=== PATIENT | female | born 1980 | race American Indian/Alaskan Native ===

== ENCOUNTER 2018-01-29 07:35 | Emergency (ER) | payer SELFPAY ==
[2018-01-29 07:57] VITALS: BP 139/77
--- NOTE | 2018-01-29 09:42 | Emergency Department Report ---
ED Animal Bite HPI - General Chief Complaint: Animal Bite Stated Complaint: DOG BITE (L) HAND Source: patient Mode of arrival: Ambulatory Limitations: No Limitations - History of Present Illness Initial Comments: This is a 37-year-old -[place] female who presents with laceration to left from dog bite as morning. Patient states she tried to wrap her doll and personal backyard to avoid her dog from attack in neighbors involved. Patient states her dog accidentally bit left wrist. When she pulled her dog off her hand she noticed a laceration with a large amount of bleeding to wrist and thumb. Patient states she cleaned wound with water and came directly here for evaluation. Patient reports her dog is up-to-date on vaccines and she received a tetanus vaccination in 2015. Patient's states she has full range of motion to thumb. She denies numbness or tingling, swelling, purulent drainage, and fever. MD Complaint: animal bite -: This morning Left: Hand (left thumb) Animal: dog Animal Control Notified: No Description: household pet, immunizations UTD Mechanism: bite Pain Description: intermittent, other (aching) Severity scale (0 -10): 4 Context: animals fighting Associated Symptoms: discharge from wound, bleeding. denies: fever, chills, rash, loss of consciousness, cough, headache, diaphoresis, shortness of breath Treatments Prior to Arrival: irrigation - Related Data Home Medications Medication Instructions Recorded Confirmed Last Taken Vit 90/Iron Fum/Folic 1 each PO QDAY 02/11/13 02/11/13 Unknown [ Formula] Previous Rx's Medication Instructions Recorded Last Taken Type Docusate Sodium [Colace CAP] 100 mg PO BID #60 capsule 02/12/13 Unknown Rx Ferrous Sulfate [Feosol 325 MG tab] 325 mg PO QDAY #30 tablet 02/12/13 Unknown Rx Ibuprofen [Motrin 600 MG tab] 600 mg PO Q6HR #30 tablet 02/12/13 Unknown Rx HYDROcodone/APAP 5-325 [[place] 1 each PO Q6HR PRN #10 tablet 06/05/13 Unknown Rx 5-325 mg TAB] Ibuprofen [Motrin] 800 mg PO TID PRN #20 tablet 06/05/13 Unknown Rx Amoxicillin/Potassium Clav 1 each PO TID #21 tablet 01/29/18 Unknown Rx [Augmentin 500-125 Tablet] Allergies Allergy/AdvReac Type Severity Reaction Status Date / Time No Known Allergies Allergy Unverified 01/11/13 12:12 ED Review of Systems ROS: Stated complaint: DOG BITE (L) HAND Other details as noted in HPI Constitutional: denies: chills, fever Respiratory: denies: cough, shortness of breath, wheezing Cardiovascular: denies: chest pain, palpitations Gastrointestinal: denies: abdominal pain, nausea, diarrhea Skin: lesions (laceration to left wrist). denies: rash Neurological: denies: headache, weakness, paresthesias Psychiatric: denies: anxiety, depression ED Past Medical Hx - Past Medical History Hx Hypertension: No Hx Congestive Heart Failure: No Hx Diabetes: No Hx Deep Vein Thrombosis: No Hx Renal Disease: No Hx Sickle Cell Disease: No Hx Seizures: No Hx Asthma: No Hx COPD: No - Surgical History Past Surgical History?: No - Social History Smoking Status: Current Every Day Smoker Substance Use Type: None - Medications Home Medications: Home Medications Medication Instructions Recorded Confirmed Last Taken Type Vit 90/Iron Fum/Folic 1 each PO QDAY 02/11/13 02/11/13 Unknown History [ Formula] Docusate Sodium [Colace CAP] 100 mg PO BID #60 capsule 02/12/13 Unknown Rx Ferrous Sulfate [Feosol 325 MG tab] 325 mg PO QDAY #30 tablet 02/12/13 Unknown Rx Ibuprofen [Motrin 600 MG tab] 600 mg PO Q6HR #30 tablet 02/12/13 Unknown Rx HYDROcodone/APAP 5-325 [[place] 1 each PO Q6HR PRN #10 tablet 06/05/13 Unknown Rx 5-325 mg TAB] Ibuprofen [Motrin] 800 mg PO TID PRN #20 tablet 06/05/13 Unknown Rx Amoxicillin/Potassium Clav 1 each PO TID #21 tablet 01/29/18 Unknown Rx [Augmentin 500-125 Tablet] ED Physical Exam - General Limitations: No Limitations General appearance: alert, in no apparent distress - Respiratory Respiratory exam: Present: normal lung sounds bilaterally. Absent: respiratory distress - Cardiovascular Cardiovascular Exam: Present: regular rate, normal rhythm. Absent: systolic murmur, diastolic murmur, rubs, gallop - GI/Abdominal GI/Abdominal exam: Present: soft, normal bowel sounds. Absent: organomegaly, mass - Neurological Exam Neurological exam: Present: alert, oriented X3 - Psychiatric Psychiatric exam: Present: normal affect, normal mood - Skin Skin exam: Present: warm, dry, normal color, other (2 cm laceration to 1st left medial metacarpal, and to muscle, serous discharge, no tendon or vessel exposed , no surrounding cellulitis). Absent: intact, rash ED Course Vital Signs 01/29/18 07:54 Temperature 98.6 F Pulse Rate 93 H Respiratory 16 Rate Blood Pressure 139/77 O2 Sat by Pulse 100 Oximetry Critical care attestation.: If time is entered above; I have spent that time in minutes in the direct care of this critically ill patient, excluding procedure time. ED Disposition Clinical Impression: Dog bite of left wrist Qualifiers: Encounter type: initial encounter Qualified Code(s): S61.552A - Open bite of left wrist, initial encounter Laceration of wrist without complication Qualifiers: Encounter type: initial encounter Laterality: left Qualified Code(s): S61.512A - Laceration without foreign body of left wrist, initial encounter Disposition: TO HOME OR SELFCARE Is pt being admited?: No Does the pt Need Aspirin: No Condition: Stable Instructions: Animal Bite (ED), Finger Laceration (ED) Additional Instructions: Take antibiotics as prescribed for the full course. Keep wound dry and clean for 48 hours. Avoid putting to much tension on wound site. Prop arm up on pillows to decrease swelling. Follow up with Primary Care Provider in 2-3 days for reevaluation of wound healing. Return to ER if red, swollen, foul discharge, or fever. Prescriptions: Amoxicillin/Potassium Clav [Augmentin 500-125 Tablet] 1 each PO TID #21 tablet Referrals: ADELINA MARINA MD [Staff Physician] - 3-5 Days [facility] [place] [Outside] - 3-5 Days [facility] [Outside] - 3-5 Days Forms: Work/School Release Form(ED) Time of Disposition: 10:25 Print Language: UPPER SORBIAN ED Medical Decision Making - Radiology Data Radiology results: report reviewed, image reviewed LEFT HAND, 2 views: History: Laceration, dogbite. The bony architecture is intact. Bony alignment is normal. No soft tissue abnormalities are seen. The joint spaces appear preserved. IMPRESSION: Normal left hand. - Medical Decision Making Patient is stable and examined by me. Patient is nontoxic appearing and in no acute signs of distress noted. X-rays of left wrist obtained and dictated by radiologist. I reviewed the report with no acute findings. Laceration to left wrist form dog bite. Wound irrigated with normal saline and sterile dressing applied. Start augment for prophylactic treatment. Patient informed of x-ray results and ER plan. Patient discharged home in stable condition. Discharged home and follow up with PCP in 3 days for reevaluation of wound.
--- NOTE | 2018-01-29 09:55 | XRay Report ---
LEFT HAND, 2 views: History: Laceration, dogbite. The bony architecture is intact. Bony alignment is normal. No soft tissue abnormalities are seen. The joint spaces appear preserved. IMPRESSION: Normal left hand.
== END 2018-01-29 10:38 | disposition home or self-care (01) ==
LOC: ED 07:35
DX: S61.552A Open bite of left wrist, initial encounter (principal); F17.200 Nicotine dependence, unspecified, uncomplicated; W54.0XXA Bitten by dog, initial encounter; Y93.89 Activity, other specified; Y92.89 Other specified places as the place of occurrence of the external cause; Y99.8 Other external cause status
CPT/HCPCS: 99283

== ENCOUNTER 2021-01-19 10:10 | Emergency (ER) | payer SELFPAY ==
[2021-01-19 10:18] VITALS: BP 145/85
--- NOTE | 2021-01-19 12:28 | Emergency Department Report ---
- General Chief Complaint: Chest Pain Stated Complaint: CHEST PAIN, VOMITING, SWEATS Time Seen by Provider: 01/19/21 12:23 Source: patient Mode of arrival: Ambulatory Limitations: No Limitations - History of Present Illness Initial Comments: Patient is a 40-year-old female presents emergency room complaints of URI symptoms that began yesterday. She has associated headache, sinus pressure, nausea, vomiting, diarrhea, chills, subjective fever, generalized body aches, generalized weakness, fatigue, cough. She denies any shortness of breath, abdominal pain, urinary symptoms, leg swelling. She has not been vaccinated for COVID-19. She has not been tested for COVID-19 since becoming sick. No past medical history. No allergies to medications. She states her last menstrual cycle was yesterday. - Related Data Home Medications Medication Instructions Recorded Confirmed Last Taken Vit 90/Iron Fum/Folic 1 each PO QDAY 02/11/13 02/11/13 Unknown [ Formula] Previous Rx's Medication Instructions Recorded Last Taken Type Docusate Sodium [Colace CAP] 100 mg PO BID #60 capsule 02/12/13 Unknown Rx Ferrous Sulfate [Feosol 325 MG tab] 325 mg PO QDAY #30 tablet 02/12/13 Unknown Rx Ibuprofen [Motrin 600 MG tab] 600 mg PO Q6HR #30 tablet 02/12/13 Unknown Rx HYDROcodone/APAP 5-325 [[place] 1 each PO Q6HR PRN #10 tablet 06/05/13 Unknown Rx 5-325 mg TAB] Ibuprofen [Motrin] 800 mg PO TID PRN #20 tablet 06/05/13 Unknown Rx Amoxicillin/Potassium Clav 1 each PO TID #21 tablet 01/29/18 Unknown Rx [Augmentin 500-125 Tablet] Benzonatate [Tessalon Perles] 100 mg PO Q8HR PRN #12 capsule 01/19/21 Unknown Rx Ondansetron [Zofran Odt] 4 mg PO Q8HR PRN #10 tab.rapdis 01/19/21 Unknown Rx guaiFENesin ER [Mucinex ER] 600 mg PO Q12H #14 tablet.er 01/19/21 Unknown Rx Allergies Allergy/AdvReac Type Severity Reaction Status Date / Time No Known Allergies Allergy Verified 01/19/21 10:18 ED Review of Systems ROS: Stated complaint: CHEST PAIN, VOMITING, SWEATS Other details as noted in HPI Comment: All other systems reviewed and negative ED Past Medical Hx - Past Medical History Hx Hypertension: No Hx Congestive Heart Failure: No Hx Diabetes: No Hx Deep Vein Thrombosis: No Hx Renal Disease: No Hx Sickle Cell Disease: No Hx Seizures: No Hx Asthma: No Hx COPD: No - Social History Smoking Status: Current Every Day Smoker Substance Use Type: None - Medications Home Medications: Home Medications Medication Instructions Recorded Confirmed Last Taken Type Vit 90/Iron Fum/Folic 1 each PO QDAY 02/11/13 02/11/13 Unknown History [ Formula] Docusate Sodium [Colace CAP] 100 mg PO BID #60 capsule 02/12/13 Unknown Rx Ferrous Sulfate [Feosol 325 MG tab] 325 mg PO QDAY #30 tablet 02/12/13 Unknown Rx Ibuprofen [Motrin 600 MG tab] 600 mg PO Q6HR #30 tablet 02/12/13 Unknown Rx HYDROcodone/APAP 5-325 [[place] 1 each PO Q6HR PRN #10 tablet 06/05/13 Unknown Rx 5-325 mg TAB] Ibuprofen [Motrin] 800 mg PO TID PRN #20 tablet 06/05/13 Unknown Rx Amoxicillin/Potassium Clav 1 each PO TID #21 tablet 01/29/18 Unknown Rx [Augmentin 500-125 Tablet] Benzonatate [Tessalon Perles] 100 mg PO Q8HR PRN #12 capsule 01/19/21 Unknown Rx Ondansetron [Zofran Odt] 4 mg PO Q8HR PRN #10 tab.rapdis 01/19/21 Unknown Rx guaiFENesin ER [Mucinex ER] 600 mg PO Q12H #14 tablet.er 01/19/21 Unknown Rx ED Physical Exam - General Limitations: No Limitations General appearance: alert, in no apparent distress - Head Head exam: Present: atraumatic, normocephalic - Eye Eye exam: Present: normal appearance - ENT ENT exam: Present: mucous membranes moist - Respiratory Respiratory exam: Present: normal lung sounds bilaterally. Absent: respiratory distress, wheezes, rales, rhonchi, stridor, chest wall tenderness, accessory muscle use, decreased breath sounds, prolonged expiratory - Cardiovascular Cardiovascular Exam: Present: regular rate, normal rhythm, normal heart sounds. Absent: systolic murmur, diastolic murmur, rubs, gallop - Neurological Exam Neurological exam: Present: alert, oriented X3 - Psychiatric Psychiatric exam: Present: normal affect, normal mood - Skin Skin exam: Present: warm, dry, intact ED Course Vital Signs 01/19/21 10:16 Temperature 97.8 F Pulse Rate 71 Respiratory 18 Rate Blood Pressure 145/85 [Right] O2 Sat by Pulse 100 Oximetry ED Medical Decision Making - Lab Data Result diagrams: 01/19/21 13:12 01/19/21 13:12 Lab Results 01/19/21 01/19/21 Range/Units 13:12 13:12 WBC 6.5 (4.5-11.0) K/mm3 RBC 4.23 (3.65-5.03) M/mm3 Hgb 15.7 H (10.1-14.3) gm/dl Hct 45.0 H (30.3-42.9) % MCV 106 H (79-97) fl MCH 37 H (28-32) pg MCHC 35 H (30-34) % RDW 12.1 L (13.2-15.2) % Plt Count 238 (140-440) K/mm3 Lymph % (Auto) 19.7 (13.4-35.0) % [place] % (Auto) 6.8 (0.0-7.3) % Eos % (Auto) 1.1 (0.0-4.3) % Baso % (Auto) 0.9 (0.0-1.8) % Lymph # (Auto) 1.3 (1.2-5.4) K/mm3 [place] # (Auto) 0.4 (0.0-0.8) K/mm3 Eos # (Auto) 0.1 (0.0-0.4) K/mm3 Baso # (Auto) 0.1 (0.0-0.1) K/mm3 Seg Neutrophils % 71.5 H (40.0-70.0) % Seg Neutrophils # 4.7 (1.8-7.7) K/mm3 Sodium 138 (137-145) mmol/L Potassium 3.8 (3.6-5.0) mmol/L Chloride 104.3 (98-107) mmol/L Carbon Dioxide 25 (22-30) mmol/L Anion Gap 13 mmol/L BUN 8 (7-17) mg/dL Creatinine 0.5 L (0.6-1.2) mg/dL Estimated GFR > 60 ml/min BUN/Creatinine Ratio 16 % Glucose 92 (65-100) mg/dL Calcium 8.8 (8.4-10.2) mg/dL Total Bilirubin 1.10 (0.1-1.2) mg/dL AST 24 (5-40) units/L ALT 16 (7-56) units/L Alkaline Phosphatase 62 (35-129) units/L Total Protein 7.5 (6.3-8.2) g/dL Albumin 4.4 (3.9-5) g/dL Albumin/Globulin Ratio 1.4 % - Radiology Data Radiology results: report reviewed Ordering Physician: MAY ANTUNEZ Date of Service: 01/19/21 Procedure(s): XR chest routine 2V Accession Number(s): [id number] cc: MAY ANTUNEZ Fluoro Time In Minutes: CHEST 2 VIEWS INDICATION / CLINICAL INFORMATION: cough, n/v/d, chills. COMPARISON: None available. FINDINGS: SUPPORT DEVICES: None. HEART / MEDIASTINUM: No significant abnormality. LUNGS / PLEURA: No significant pulmonary or pleural abnormality. No pneumot horax. ADDITIONAL FINDINGS: No significant additional findings. IMPRESSION: 1. No significant abnormality. Signer Name: Daisy Arias MD Signed: 01/19/2021 1:23 PM Workstation Name: [id number] Transcribed By: Dictated By: Daisy Arias MD Electronically Authenticated By: Daisy Arias MD Signed Date/Time: 01/19/21 132 DD/ 22 TD/TT: - Medical Decision Making Patient is a 40-year-old female presents emergency room complaints of URI symptoms that began yesterday. She has associated headache, sinus pressure, nausea, vomiting, diarrhea, chills, subjective fever, generalized body aches, ge neralized weakness, fatigue, cough. She denies any shortness of breath, abdominal pain, urinary symptoms, leg swelling. She has not been vaccinated for COVID-19. She has not been tested for COVID-19 since becoming sick. No past medical history. No allergies to medications. She states her last menstrual cycle was yesterday. Vitals are stable. Breath sounds are clear bilaterally, no wheezing, no rales, no rhonchi. Labs are stable. Chest x-ray: 1. No significant abnormality. Patient has had no episodes of vomiting while in the emergency department and she is able to tolerate p.o. intake. Symptoms and examination appear likely consistent with URI. Patient is presenting with the symptoms during COVID-19 pandemic, discussed the possibility of COVID-19 with patient, discussed return precautions, discussed outpatient testing, discussed self quarantine. Discussed supportive care and symptomatic treatment and the importance of oral hydration. Advised patient Please take medication as prescribed. Please increase your fluid intake over the next several days. May take Tylenol as needed for fever or body aches. Follow-up with a primary care doctor for reexamination. Return to emergency room immediately for any new or worsening symptoms including but not limited to difficulty breathing, shortness of breath, severe chest pain, unable to tolerate by mouth intake, etc. recommend for you to get outpatient COVID-19 test and if positive you need to self quarantine for 10 days from the onset of your symptoms. Critical care attestation.: If time is entered above; I have spent that time in minutes in the direct care of this critically ill patient, excluding procedure time. ED Disposition Clinical Impression: Upper respiratory infection Qualifiers: URI type: unspecified URI Qualified Code(s): J06.9 - Acute upper respiratory infection, unspecified Disposition: 01 HOME / SELF CARE / HOMELESS Is pt being admited?: No Does the pt Need Aspirin: No Condition: Stable Instructions: Viral Respiratory Infection Additional Instructions: Please take medication as prescribed. Please increase your fluid intake over the next several days. May take Tylenol as needed for fever or body aches. Follow-up with a primary care doctor for reexamination. Return to emergency room immediately for any new or worsening symptoms including but not limited to difficulty breathing, shortness of breath, severe chest pain, unable to tolerate by mouth intake, etc. recommend for you to get outpatient COVID-19 test and if positive you need to self quarantine for 10 days from the onset of your symptoms. Prescriptions: guaiFENesin ER [Mucinex ER] 600 mg PO Q12H #14 tablet.er Benzonatate [Tessalon Perles] 100 mg PO Q8HR PRN #12 capsule PRN Reason: cough Ondansetron [Zofran Odt] 4 mg PO Q8HR PRN #10 tab.rapdis PRN Reason: nausea/vomiting Referrals: [facility] [Provider Group] - 2-3 Days WILDER GOFF MD [Staff Physician] - 2-3 Days Time of Disposition: 14:25 Print Language: GREENLANDIC
--- NOTE | 2021-01-19 13:28 | XRay Report ---
CHEST 2 VIEWS INDICATION / CLINICAL INFORMATION: cough, n/v/d, chills. COMPARISON: None available. FINDINGS: SUPPORT DEVICES: None. HEART / MEDIASTINUM: No significant abnormality. LUNGS / PLEURA: No significant pulmonary or pleural abnormality. No pneumothorax. ADDITIONAL FINDINGS: No significant additional findings. IMPRESSION: 1. No significant abnormality. Signer Name: Daisy Arias MD Signed: 01/19/2021 1:23 PM Workstation Name: [id number]
[2021-01-19 13:46] LABS: Basophils # (Auto) 0.1 K/mm3 (0.0-0.1); Basophils % (Auto) 0.9 % (0.0-1.8); Eosinophils # (Auto) 0.1 K/mm3 (0.0-0.4); Eosinophils % (Auto) 1.1 % (0.0-4.3); Hemoglobin 15.7 gm/dl (10.1-14.3); Lymphocytes # (Auto) 1.3 K/mm3 (1.2-5.4); Lymphocytes % (Auto) 19.7 % (13.4-35.0); Mean Corpuscular HGB Conc 35 % (30-34); Mean Corpuscular Volume 106 fl (79-97); Monocytes # (Auto) 0.4 K/mm3 (0.0-0.8); Monocytes % (Auto) 6.8 % (0.0-7.3); Platelet Count 238 K/mm3 (140-440); Red Blood Count 4.23 M/mm3 (3.65-5.03); Red Cell Distribution Width 12.1 % (13.2-15.2)
[2021-01-19 14:06] LABS: Alanine Aminotransferase 16 units/L (7-56); Albumin 4.4 g/dL (3.9-5); Blood Urea Nitrogen 8 mg/dL (7-17); Calcium 8.8 mg/dL (8.4-10.2); Hemolysis Index 8
[2021-01-19 14:15] LABS: BUN/Creatinine Ratio 16
--- NOTE | 2021-01-21 09:43 | Electrocardiograph Report ---
[facility] Test Date: 2021-01-19 Test Time: 10:22:35 Pat Name: JESSIE AVITIA Department: Room: Gender: F Technical Sales Support Specialist: TV : 1980 Requested By: MAN MURO Order Number: [id number] Reading MD: Erich Palacios Measurements Intervals [place] Rate: 61 P: -28 [place]: 137 QRS: 11 QRSD: 73 T: 53 QT: 409 QTc: 411 Interpretive Statements Sinus rhythm Low voltage, precordial leads Consider anteroseptal infarct No previous ECG available for comparison Electronically Signed On 01-21-2021 9:43:17 EDT by Erich Palacios
== END 2021-01-19 14:30 | disposition home or self-care (01) ==
LOC: ED 10:10
DX: J06.9 Acute upper respiratory infection, unspecified (principal); F17.200 Nicotine dependence, unspecified, uncomplicated; Z79.899 Other long term (current) drug therapy
CPT/HCPCS: 36415; 71046; 80053; 85025; 93005